=== PATIENT | female | born 1995 | race African-American/Black ===

== ENCOUNTER 2019-02-02 08:47 | Outpatient (CLI) | payer BC ==
[2019-02-02] MEDS ORDERED: Iopamidol 300 61% 100 ML VIAL FS ONE (09:00)
--- NOTE | 2019-02-02 10:37 | CT ---
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 FINDINGS: In the right side of the pelvic cavity, there is a 2.5 x 2 x 2.3 cm well-circumscribed round mass it has mixed attenuation, but it partially consists of fat density anteriorly (-120 Hounsfield units), and interspersed fluid density. Posteriorly within the mass, there is a 1 x 1.3 x 1.27 m solid nodule . There is no associated calcification. The uterus is near midline. The uterine fundus and body have diffusely homogeneous enhancement, but t he lower uterine segment and cervix have diffusely low attenuation. The fat planes are effaced in the pelvic cavity such that it is difficult to visualize bilateral ovarian normal parenchyma. This ef facement of fat planes may or may not represent a small amount of free fluid. Alternatively, it could represent edema. Urinary bladder is partially decompressed. Moderate to large volume of colonic stool. IMPRESSION: 2.5 cm right adnexal dermoid.
== END 2019-02-02 08:48 | disposition home or self-care (01) ==
LOC: SCSCT 08:47
PROVIDERS: ATTEND Obstetrics & Gynecology Reproductive Endocrinology
DX: D27.0 Benign neoplasm of right ovary (principal); N83.8 Other noninflammatory disorders of ovary, fallopian tube and broad ligament
CPT/HCPCS: 72194; Q9967